=== PATIENT | male | born 1945 | race Caucasian/White ===

== ENCOUNTER 2018-03-30 09:16 | Inpatient (IN) | payer MEDICARE ==
[~2018-03-30] VITALS: Ht 177.8 cm; Wt 105.7 kg
--- NOTE | ~2018-03-30 | CN ---
PATIENT NAME:CAROL LEY MEDICAL RECORD: [id number] : 47 LOCATION:D. D.2126 ADMIT DATE: 03/30/18 ACCOUNT: [id number] CONSULTING PHYSICIAN: SHARMIN ALAS MD REFERRING PHYSICIAN: ANTOINETTE CASTANON MD DATE OF CONSULTATION: 03/30/2018 CARDIOLOGY CONSULT DIAGNOSES: 1. Non-Q-wave myocardial infarction. 2. Coronary artery disease. 3. Previous coronary bypass graft surgery. 4. ETOH abuse. 5. Acute renal failure. HISTORY OF PRESENT ILLNESS: Mr. Ley presents with ETOH delirium from ETOH abuse and was found to have a troponin that is positive. He does have a past cardiac history with coronary bypass graft surgery approximately 6 years ago. His EKG is abnormal with T-wave inversion through the anterior leads. PHYSICAL EXAMINATION: GENERAL APPEARANCE: Well-nourished, well-developed, appears stated age. Level of distress, comfortable. PSYCHIATRIC: Mental status, alert, normal affect. Orientation, oriented to time, place and person. EYES: Lids and conjunctiva, noninjected. No discharge, no pallor. ENT: Lips, teeth, gums, normal dentition. Oropharynx, no cyanosis, no pallor. NECK: Carotid arteries, bilateral normal upstroke, no bruits, no thrills. JUGULAR VEINS: No jugular venous pressure or distention. CERVICAL LYMPH NODES: Nontender, nonenlarged. THYROID: Not enlarged. Nontender. No nodules. LUNGS: Respiratory effort, unlabored. CHEST: Normal curvature. No thoracic deformity. No chest wall tenderness. Percussion, resonant. Auscultation, clear. No wheezes, no rales, no rhonchi. CARDIOVASCULAR: Precordial exam, nondisplaced. No heaves or pericardial thrills. Rate and rhythm, regular. Heart sounds, normal S1, normal S2. No S3, no gallop, no rub. Systolic murmur, not heard. Diastolic murmur, not heard. EXTREMITIES: No cyanosis, no edema. Peripheral pulses, full and equal in all extremities, except as noted. No bruits appreciated. ABDOMEN: Soft, nondistended. Normal aorta. No bruit. Nontender. No masses. Liver, nontender, no hepatomegaly. Spleen, nontender, no splenomegaly. MUSCULOSKELETAL: No joint tenderness. No joint swelling. No erythema. NEUROLOGICAL: Normal gait, normal strength, normal tone. SKIN: Warm and dry. OVERALL IMPRESSION: Non-Q-wave myocardial infarction with abnormal ECG. Most likely he does have recurrent hemodynamically significant coronary artery disease. He, however, has acute renal failure with a BUN of 47, creatinine of 5.1. We will treat him medically at this point. His troponin is positive. We will use aspirin, Plavix, and beta-anna as tolerated, but will be with a very low dose on a beta anna secondary to the renal failure. PROGNOSIS: Poor for many other issues other than cardiac. We will get an echocardiogram to define his ejection fraction. CONSULT REPORT [id number] CAROL LEY TRANSINT:[id number] Voice Confirmation ID: [id number] DOCUMENT ID: [id number] SHARMIN ALAS MD at 1218 CC: [id number] DICTATION DATE: 03/30/18 1255 DIRECTOR FRAUD: 03/30/18 1448 ADM IN [facility] [address] [place] [address]
--- NOTE | ~2018-03-30 | EC ---
PATIENT:CAROL LEY DATE OF SERVICE: 03/30/18 SEX: M MEDICAL RECORD: [id number] DATE OF : 47 LOCATION:D.M2 D.212 AGE OF PATIENT: 72 ADMISSION DATE: 03/30/18 REFERRING PHYSICIAN: INTERPRETING PHYSICIAN: SHARMIN ANTONIO MD ECHOCARDIOGRAM REPORT ECHO CHARGES 4 ECHO COMPLETE Date: 03/30 CLINICAL DIAGNOSIS: CHF ECHOCARDIOGRAPHIC MEASUREMENTS (adult normal given) AC root (d.<3.7cm) 4.2 cm LV Septum d (<1.2 cm> 2.0 cm Valve Excursion 2.2 cm LV Septum (systole) 2.2 cm Left Atria (s.<4.0cm> 4.6 cm LVPW d(<1.2cm) 1.9 cm RV (d.<2.3cm) 4.7 cm LVPW (sytole) 2.3 cm LV diastole(<5.6CM) 4.4 cm MV E-F(>70mm/sec) cm LV systole 1.6 cm LVOT Diameter 2.3 cm MV exc.(>10mm) cm Est.ejection fraction (50-75%) % DOPPLER: LVIT cm/sec A 77.0 cm/sec E 94.0 cm/sec LA cm/sec RVSP 30 mmHg LVOT 153 cm/sec AOP1/2T m/s Asc. Ao 221 cm/sec RVOT 97 cm/sec RA cm/sec PA 175 cm/sec AV Gradient Peak 19.48mmHg AV Mean 1.62 mmHg AV Area 3.3 cm MV Gradient Peak 4.23 mmHg MV Mean 1.62 mmHg MV Area cm COMMENTS: Exhibition Designer: Aliyah GREY Bus Operator: 1 Dr. Antonio TAPE# PACS Pericardial Effusion N DATE OF SERVICE: 03/30/2018 PROCEDURE: Echocardiogram. FINDINGS: 1. Left ventricular chamber size is within normal limits. Left ventricular systolic function is normal. Overall ejection fraction estimated at 60%. 2. Left atrium is enlarged at 4.6 cm. Right atrium and right ventricle chamber sizes are as well mildly dilated. 3. Valvular structures have normal structure and motion. ECHOCARDIOGRAM REPORT [id number] CAROL LEY 4. Doppler interrogation only reveals mild tricuspid regurgitation, no other valvular insufficiency or stenosis and pulmonary systolic pressure is estimated at 30 mmHg. 5. No evidence of pericardial effusion or left ventricular thrombus. TRANSINT:[id number] Voice Confirmation ID: [id number] DOCUMENT ID: [id number] SHARMIN ANTONIO MD at 1218 CC: [id number] DICTATION DATE: 03/30/18 1553 FISH GRADER: 03/30/18 [address] [facility] [address] [place] [address]
[2018-03-30 10:30] LABS: HEMATOCRIT 35.6 % (42.0-54.0); LYMPHOCYTES 17.7 % (15-50); MCH 25.6 pg (26.0-34.0); MCHC 30.9 g/dL (31.0-37.0); MCV 82.8 fL (80.0-100.0); MEAN PLATELET VOLUME 10.4 fL (7.4-10.4); NEUTROPHILS 69.9 % (40-80); RDW 20.2 % (11.5-14.5); WBC 5.7 10x3/uL (4.8-10.8)
[2018-03-30 10:40] LABS: ALBUMIN 2.8 g/dL (3.4-5.0); ALKALINE PHOSPHATASE 244 U/L (46-116); ALT (SGPT) 131 U/L (10-68); BILIRUBIN - TOTAL 1.39 mg/dL (0.2-1.3); CALC OSMOLALITY 278 mosm/kg (275-300); CALCIUM 7.5 mg/dL (8.5-10.1); CARBON DIOXIDE 25.1 mmol/L (21.0-32.0); CHLORIDE - SERUM 97 mmol/L (98-107); CREATININE - SERUM 5.1 mg/dL (0.6-1.3); GLUCOSE 114 mg/dL (74-106); INR 1.23 (0.85-1.17); POTASSIUM - SERUM 3.8 mmol/L (3.5-5.1); SODIUM 133 mmol/L (136-145); UREA NITROGEN 47 mg/dL (7-18); eGFR NON AFRICAN AMERICAN 12 mL/min (90-120)
[2018-03-30 10:59] LABS: PLATELET COUNT 88 10x3/uL (130-400); PLATELET ESTIMATE DECREASED
[2018-03-30 11:01] LABS: LIPASE 124 U/L (73-393); MAGNESIUM - SERUM 1.9 mg/dL (1.8-2.4); PRO BNP 24753 pg/mL (0-125)
[2018-03-30 11:03] LABS: CREATINE KINASE 944 UL (21-232)
[2018-03-30 11:04] LABS: CKMB 35.1 U/L (0.0-3.6); TROPONIN-I 1.457 ng/mL (0.000-0.060)
[2018-03-30 12:19] LABS: UDS - AMPHET NEGATIVE QUAL (NEGATIVE); UDS - BARB NEGATIVE QUAL (NEGATIVE); UDS - BENZO NEGATIVE QUAL (NEGATIVE); UDS - COCAINE NEGATIVE QUAL (NEGATIVE); UDS - OPIATE POSITIVE QUAL (NEGATIVE); UDS - PCP NEGATIVE QUAL (NEGATIVE); UDS - THC NEGATIVE QUAL (NEGATIVE)
[2018-03-30 12:58] LABS: APPEARANCE HAZY (CLEAR); BILIRUBIN NEGATIVE (NEGATIVE); COLOR DK YELLOW (YELLOW); GLUCOSE NEGATIVE (NEGATIVE); KETONE NEGATIVE (NEGATIVE); NITRITE NEGATIVE (NEGATIVE); PROTEIN NEGATIVE (NEGATIVE)
[2018-03-30 12:59] LABS: AMORPHOUS SEDIMENT <1+ /lpf (NONE SEEN); BACTERIA MODERATE /hpf (NONE SEEN); EPITHELIAL CELLS 0-5 /hpf (0-5); GRANULAR CAST RARE /lpf (NONE SEEN); HYALINE CAST 0-5 /lpf (NONE SEEN); MUCUS <1+ /lpf (NONE SEEN); RED CELLS - URINE 0-5 /hpf (0-5); WHITE CELLS - URINE RARE /hpf (0-5)
[2018-03-30] MEDS ORDERED: CARAFATE1 G PO (15:26)
[2018-03-30] MEDS ORDERED: MS CONTIN30 MG PO (15:28)
[2018-03-30] MEDS ORDERED: LIPITOR40 MG PO (15:31)
[2018-03-30] MEDS ORDERED: PROZAC20 MG PO (15:33)
[2018-03-30] MEDS ORDERED: NEURONTIN 300300 MG PO (15:34)
[2018-03-30 15:36] VITALS: BP 127/54
[2018-03-30 15:45] VITALS: BP 127/54; BMI 33.0
[2018-03-30 18:12] LABS: ALBUMIN 2.9 g/dL (3.4-5.0); BILIRUBIN - DIRECT 0.79 mg/dL (0.00-0.30); BILIRUBIN - INDIRECT 0.51 mg/dL (0.00-1.00); BILIRUBIN - TOTAL 1.3 mg/dL (0.2-1.3); PROTEIN - SERUM 6.7 g/dL (6.4-8.2)
[2018-03-30 20:47] VITALS: BP 126/44
[2018-03-31] VITALS: BP 133/55; BP 135/74
[2018-03-31 02:12] LABS: CREATININE - URINE 253.5 mg/dL (30-125); PROTEIN - URINE 76.6 mg/dL (0.0-11.9)
[2018-03-31 05:08] VITALS: BP 124/54
[2018-03-31 07:05] LABS: BASOPHILS 0.6 % (0-2); EOSINOPHILS 2.6 % (0-7); HEMATOCRIT 34.4 % (42.0-54.0); HEMOGLOBIN 10.2 g/dL (13.5-17.5); IMMATURE GRANULOCYTES 0.2 % (0-5); MCH 24.8 pg (26.0-34.0); MCHC 29.7 g/dL (31.0-37.0); MCV 83.7 fL (80.0-100.0); MEAN PLATELET VOLUME 10.6 fL (7.4-10.4); MONOCYTES 15.2 % (2-11); NEUTROPHILS 53.4 % (40-80); PLATELET COUNT 97 10x3/uL (130-400); RBC 4.11 10x6/uL (4.20-6.10); WBC 4.9 10x3/uL (4.8-10.8)
[2018-03-31 07:12] LABS: ANION GAP 14.5 mmol/L (8-16); CALCIUM 7.4 mg/dL (8.5-10.1); CARBON DIOXIDE 26.4 mmol/L (21.0-32.0); CREATININE - SERUM 3.8 mg/dL (0.6-1.3); PHOSPHOROUS 5.7 mg/dL (2.5-4.9); POTASSIUM - SERUM 3.9 mmol/L (3.5-5.1)
[2018-03-31 07:38] LABS: ALBUMIN 2.5 g/dL (3.4-5.0); ALKALINE PHOSPHATASE 234 U/L (46-116); ALT (SGPT) 106 U/L (10-68); BILIRUBIN - DIRECT 0.68 mg/dL (0.00-0.30); BILIRUBIN - INDIRECT 0.52 mg/dL (0.00-1.00); MAGNESIUM - SERUM 2.1 mg/dL (1.8-2.4); PROTEIN - SERUM 6.4 g/dL (6.4-8.2)
[2018-03-31 07:39] LABS: CREATINE KINASE 1348 UL (21-232)
[2018-03-31 08:21] VITALS: BP 167/75
[2018-03-31 10:30] VITALS: BMI 33.0
[2018-03-31 11:37] VITALS: BP 177/60
[2018-03-31 16:18] VITALS: BP 180/70
[2018-03-31 21:22] VITALS: BP 157/70
[2018-04-01] VITALS (7 sets, daily range): BP systolic 113–189; BP diastolic 42–70; Ht 177.8 cm; Wt 105.7 kg
[2018-04-01 06:09] LABS: HEMATOCRIT 28.8 % (42.0-54.0); HEMOGLOBIN 8.8 g/dL (13.5-17.5); MCH 25.1 pg (26.0-34.0); MCHC 30.6 g/dL (31.0-37.0); MCV 82.3 fL (80.0-100.0); MEAN PLATELET VOLUME 10.6 fL (7.4-10.4)
[2018-04-01 06:26] LABS: PLATELET COUNT 77 10x3/uL (130-400); WBC 2.2 10x3/uL (4.8-10.8)
[2018-04-01 06:27] LABS: ANION GAP 10.2 mmol/L (8-16); CALCIUM 7.8 mg/dL (8.5-10.1); CARBON DIOXIDE 31.2 mmol/L (21.0-32.0); POTASSIUM - SERUM 3.4 mmol/L (3.5-5.1)
[2018-04-01 06:28] LABS: CREATININE - SERUM 1.6 mg/dL (0.6-1.3)
[2018-04-01 07:48] LABS: EOSINOPHILS 2 % (0-7); LYMPHOCYTES 28 % (15-50); MONOCYTES 12 % (2-11); NEUTROPHILS 56 % (40-80); PLATELET ESTIMATE DECREASED
[2018-04-01 12:17] LABS: HEPATITIS C ANTIBODY <0.1 (0.0-0.9)
[2018-04-01 20:21] LABS: % SATURATION 6 % (15-55); IRON 20 ug/dl (35-150); TOTAL IRON BIND CAPACITY 302 ug/dl (260-445); UNSAT IRON BIND CAPACITY 282 ug/dl (150-375)
[2018-04-01 20:25] LABS: FERRITIN 46 ng/mL (3-244); LDH 257 U/L (85-227)
[2018-04-02 01:28] VITALS: BP 158/74
[2018-04-02 05:12] LABS: BASOPHILS 0.4 % (0-2); EOSINOPHILS 1.6 % (0-7); HEMATOCRIT 29.1 % (42.0-54.0); HEMOGLOBIN 8.6 g/dL (13.5-17.5); LYMPHOCYTES 26.3 % (15-50); MCH 24.7 pg (26.0-34.0); MCHC 29.6 g/dL (31.0-37.0); MCV 83.6 fL (80.0-100.0); MEAN PLATELET VOLUME 9.9 fL (7.4-10.4); MONOCYTES 16.1 % (2-11); NEUTROPHILS 55.6 % (40-80); PLATELET COUNT 69 10x3/uL (130-400); RBC 3.48 10x6/uL (4.20-6.10); RDW 19.9 % (11.5-14.5); WBC 2.6 10x3/uL (4.8-10.8)
[2018-04-02 05:21] LABS: CALCIUM 8.3 mg/dL (8.5-10.1); CARBON DIOXIDE 35.2 mmol/L (21.0-32.0); CHLORIDE - SERUM 112 mmol/L (98-107); GLUCOSE 114 mg/dL (74-106); PHOSPHOROUS 2.5 mg/dL (2.5-4.9); POTASSIUM - SERUM 3.6 mmol/L (3.5-5.1); SODIUM 150 mmol/L (136-145)
[2018-04-02 05:23] LABS: CALC OSMOLALITY 300 mosm/kg (275-300); CREATININE - SERUM 0.8 mg/dL (0.6-1.3); UREA NITROGEN 19 mg/dL (7-18); eGFR NON AFRICAN AMERICAN > 90 mL/min (90-120)
[2018-04-02 06:02] VITALS: BP 141/63
[2018-04-02 08:18] VITALS: BP 131/54
[2018-04-02 11:02] LABS: PATH REVIEW PERIPHERAL SMEAR REVIEWED
[2018-04-02 11:09] VITALS: BP 162/59
[2018-04-02 16:03] VITALS: BP 142/59
[2018-04-02 20:00] VITALS: BP 164/68
[2018-04-03] VITALS: BP 167/79
[2018-04-03 04:00] VITALS: BP 173/83
[2018-04-03 06:10] LABS: INR 1.29 (0.85-1.17); PROTIME 15.7 SECONDS (11.6-15.0)
[2018-04-03 06:14] LABS: FOLATE (FOLIC ACID) - SERUM 15.4 ng/mL (>3.0)
[2018-04-03 06:20] LABS: ALBUMIN 2.5 g/dL (3.4-5.0); ALKALINE PHOSPHATASE 195 U/L (46-116); ALT (SGPT) 66 U/L (10-68); BILIRUBIN - DIRECT 0.69 mg/dL (0.00-0.30); BILIRUBIN - INDIRECT 0.51 mg/dL (0.00-1.00); CALC OSMOLALITY 287 mosm/kg (275-300); CALCIUM 8.3 mg/dL (8.5-10.1); CARBON DIOXIDE 38.1 mmol/L (21.0-32.0); CHLORIDE - SERUM 106 mmol/L (98-107); CHOL - HDL RATIO 3.1 ratio (2.3-4.9); CHOLESTEROL, TOTAL 98 mg/dL (0-200); CREATININE - SERUM 0.8 mg/dL (0.6-1.3); GLUCOSE 102 mg/dL (74-106); HDL CHOLESTEROL 32 mg/dL (32-96); LDL CHOLESTEROL 54 mg/dL (0-100); LDL-HDL RATIO 1.7 ratio (1.5-3.5); PHOSPHOROUS 2.7 mg/dL (2.5-4.9); POTASSIUM - SERUM 3.4 mmol/L (3.5-5.1); PROTEIN - SERUM 6.3 g/dL (6.4-8.2); SODIUM 145 mmol/L (136-145); TRIGLYCERIDE 62 mg/dL (30-200); eGFR NON AFRICAN AMERICAN > 90 mL/min (90-120)
[2018-04-03 06:21] LABS: UREA NITROGEN 10 mg/dL (7-18)
[2018-04-03 07:17] LABS: BASOPHILS 0.7 % (0-2); HEMATOCRIT 31.5 % (42.0-54.0); HEMOGLOBIN 9.6 g/dL (13.5-17.5); LYMPHOCYTES 34.2 % (15-50); MCH 25.5 pg (26.0-34.0); MCHC 30.5 g/dL (31.0-37.0); MCV 83.6 fL (80.0-100.0); MEAN PLATELET VOLUME 10.4 fL (7.4-10.4); MONOCYTES 15.8 % (2-11); NEUTROPHILS 46.3 % (40-80); PLATELET COUNT 71 10x3/uL (130-400); RBC 3.77 10x6/uL (4.20-6.10); RDW 20.8 % (11.5-14.5)
[2018-04-03 08:35] VITALS: BP 172/84
[2018-04-03 12:00] VITALS: BP 174/80
[2018-04-03 17:02] VITALS: BP 178/77
[2018-04-03 19:40] VITALS: BP 171/73
[2018-04-04] VITALS: BP 167/77
[2018-04-04 04:00] VITALS: BP 147/76
[2018-04-04 06:16] LABS: BASOPHILS 0.4 % (0-2); EOSINOPHILS 2.5 % (0-7); HEMATOCRIT 29.6 % (42.0-54.0); IMMATURE GRANULOCYTES 0.7 % (0-5); LYMPHOCYTES 28.4 % (15-50); MCH 25.5 pg (26.0-34.0); MCHC 30.4 g/dL (31.0-37.0); MCV 83.9 fL (80.0-100.0); MEAN PLATELET VOLUME 10.1 fL (7.4-10.4); MONOCYTES 16.9 % (2-11); NEUTROPHILS 51.1 % (40-80); RBC 3.53 10x6/uL (4.20-6.10); RDW 21.1 % (11.5-14.5); WBC 2.8 10x3/uL (4.8-10.8)
[2018-04-04 06:19] LABS: PLATELET COUNT 56 10x3/uL (130-400)
[2018-04-04 06:44] LABS: CALCIUM 8.2 mg/dL (8.5-10.1); CHLORIDE - SERUM 104 mmol/L (98-107); CREATININE - SERUM 0.8 mg/dL (0.6-1.3); GLUCOSE 125 mg/dL (74-106); PHOSPHOROUS 2.1 mg/dL (2.5-4.9); SODIUM 140 mmol/L (136-145); eGFR NON AFRICAN AMERICAN > 90 mL/min (90-120)
[2018-04-04 06:45] LABS: CALC OSMOLALITY 277 mosm/kg (275-300); POTASSIUM - SERUM 2.8 mmol/L (3.5-5.1); UREA NITROGEN 6 mg/dL (7-18)
[2018-04-04 09:09] VITALS: BP 165/81
[2018-04-04 12:00] VITALS: BP 154/69
[2018-04-04 17:23] VITALS: BP 167/79
[2018-04-04 20:00] VITALS: BP 154/73
[2018-04-05 04:00] VITALS: BP 152/62
[2018-04-05 07:18] LABS: BASOPHILS 0.6 % (0-2); EOSINOPHILS 2.6 % (0-7); HEMATOCRIT 28.4 % (42.0-54.0); HEMOGLOBIN 8.6 g/dL (13.5-17.5); IMMATURE GRANULOCYTES 0.3 % (0-5); LYMPHOCYTES 19.9 % (15-50); MCH 25.4 pg (26.0-34.0); MCHC 30.3 g/dL (31.0-37.0); MEAN PLATELET VOLUME 10.4 fL (7.4-10.4); MONOCYTES 21.9 % (2-11); NEUTROPHILS 54.7 % (40-80); PLATELET COUNT 60 10x3/uL (130-400); RBC 3.38 10x6/uL (4.20-6.10); RDW 21.3 % (11.5-14.5); WBC 3.1 10x3/uL (4.8-10.8)
[2018-04-05 07:30] LABS: ALBUMIN 2.3 g/dL (3.4-5.0); ALKALINE PHOSPHATASE 174 U/L (46-116); ALT (SGPT) 44 U/L (10-68); BILIRUBIN - TOTAL 1.22 mg/dL (0.2-1.3); CALC OSMOLALITY 281 mosm/kg (275-300); CALCIUM 8.2 mg/dL (8.5-10.1); CHLORIDE - SERUM 105 mmol/L (98-107); CREATININE - SERUM 0.9 mg/dL (0.6-1.3); GLUCOSE 117 mg/dL (74-106); POTASSIUM - SERUM 3.3 mmol/L (3.5-5.1); SODIUM 142 mmol/L (136-145); UREA NITROGEN 6 mg/dL (7-18); eGFR NON AFRICAN AMERICAN 88 mL/min (90-120)
[2018-04-05 07:31] LABS: PHOSPHOROUS 2.7 mg/dL (2.5-4.9)
[2018-04-05 08:00] VITALS: BP 127/64
[2018-04-05 11:02] VITALS: BP 132/57
[2018-04-05] MEDS ORDERED: ASPIRIN81 MG PO (13:44)
[2018-04-05] MEDS ORDERED: FLOMAX0.4 MG PO (13:44)
[2018-04-05] MEDS ORDERED: XIFAXAN550 MG PO (13:44)
[2018-04-05] MEDS ORDERED: FERROUS SULFAT325 MG PO (13:44)
[2018-04-05] MEDS ORDERED: PLAVIX75 MG PO (13:44)
== END 2018-04-05 15:38 | disposition home or self-care (01) | DRG 441 ==
LOC: D.ER 09:16 → D.EDHOLD 12:02 → D.M2 12:02
PROVIDERS: Family Medicine; Internal Medicine Gastroenterology; Internal Medicine Nephrology; Legal Medicine
DX: K72.90 Hepatic failure, unspecified without coma (principal); I21.4 Non-ST elevation (NSTEMI) myocardial infarction; N17.9 Acute kidney failure, unspecified; F10.239 Alcohol dependence with withdrawal, unspecified; I25.10 Atherosclerotic heart disease of native coronary artery without angina pectoris; K74.60 Unspecified cirrhosis of liver; E66.01 Morbid (severe) obesity due to excess calories; Z68.33 Body mass index [BMI] 33.0-33.9, adult; D69.6 Thrombocytopenia, unspecified; N32.0 Bladder-neck obstruction; R31.9 Hematuria, unspecified; T83.028A Displacement of other urinary catheter, initial encounter; Y84.6 Urinary catheterization as the cause of abnormal reaction of the patient, or of later complication, without mention of misadventure at the time of the procedure; Z95.1 Presence of aortocoronary bypass graft

== ENCOUNTER 2018-11-25 17:59 | Inpatient (IN) | payer MEDICARE ==
[2018-11-25] VITALS (9 sets, daily range): BP systolic 56–152; BP diastolic 27–79
[~2018-11-25] VITALS: Ht 177.8 cm; Wt 108.6 kg
[~2018-11-25 17:59] MED LIST: ASPIRIN81 MG PO; CARAFATE1 G PO; FERROUS SULFAT325 MG PO; FLOMAX0.4 MG PO; LIPITOR40 MG PO; MS CONTIN30 MG PO; NEURONTIN 300300 MG PO; PLAVIX75 MG PO; PROZAC20 MG PO; XIFAXAN550 MG PO
[2018-11-25 19:43] LABS: BASOPHILS 0.4 % (0-2); EOSINOPHILS 0.5 % (0-7); HEMATOCRIT 36.7 % (42.0-54.0); HEMOGLOBIN 11.7 g/dL (13.5-17.5); IMMATURE GRANULOCYTES 0.3 % (0-5); MCH 29.2 pg (26.0-34.0); MCHC 31.9 g/dL (31.0-37.0); MCV 91.5 fL (80.0-100.0); MEAN PLATELET VOLUME 10.9 fL (7.4-10.4); MONOCYTES 14.5 % (2-11); NEUTROPHILS 67.3 % (40-80); RBC 4.01 10x6/uL (4.20-6.10); RDW 15.4 % (11.5-14.5); WBC 7.5 10x3/uL (4.8-10.8)
[2018-11-25 19:46] LABS: PLATELET COUNT 111 10x3/uL (130-400)
[2018-11-25 19:54] LABS: ALBUMIN 3.2 g/dL (3.4-5.0); ANION GAP 19.7 mmol/L (8-16); CALCIUM 7.6 mg/dL (8.5-10.1); CARBON DIOXIDE 24.2 mmol/L (21.0-32.0); CREATININE - SERUM 5.5 mg/dL (0.6-1.3); PROTEIN - SERUM 6.9 g/dL (6.4-8.2)
[2018-11-25 19:56] LABS: POTASSIUM - SERUM 6.9 mmol/L (3.5-5.1)
[2018-11-25 20:16] LABS: BILIRUBIN - TOTAL 0.86 mg/dL (0.2-1.3)
--- NOTE | 2018-11-25 20:35 | NUR ---
PT ANXIOUS IN BED AND RESTLESS. PT SPOUSE STATES THAT IS NORMAL FOR PT DUE TO A SPINAL CORD INJURY AND PAIN. PT IS LOUD BUT ALERT AND ABLE TO ANSWER AND OBEY COMMANDS. PT DENIES NEEDS, CALL LIGHT WITHIN REACH, WILL CONTINUE TO MONITOR.
--- NOTE | 2018-11-25 21:02 | NUR ---
PT RESTING IN BED WHILE GOING TO CT. RISE AND FALL OF CHEST NOTED.
--- NOTE | 2018-11-25 22:09 | NUR ---
16 FR. INDWELLING HARO CATHETER INSERTED STERILE FIELD MAINTAINED WITH 650 ML URINE OUTPUT AT INSERTION.
[2018-11-25 23:10] LABS: ALBUMIN 3.2 g/dL (3.4-5.0); ANION GAP 19.3 mmol/L (8-16); BILIRUBIN - TOTAL 0.92 mg/dL (0.2-1.3); CALCIUM 7.4 mg/dL (8.5-10.1); CARBON DIOXIDE 22.6 mmol/L (21.0-32.0); CREATININE - SERUM 5.6 mg/dL (0.6-1.3); MAGNESIUM - SERUM 1.9 mg/dL (1.8-2.4); PROTEIN - SERUM 7.1 g/dL (6.4-8.2)
[2018-11-25 23:24] LABS: PHOSPHOROUS 10.3 mg/dL (2.5-4.9); POTASSIUM - SERUM 6.9 mmol/L (3.5-5.1)
[2018-11-25 23:29] LABS: APPEARANCE HAZY (CLEAR); BILIRUBIN NEGATIVE (NEGATIVE); COLOR YELLOW (YELLOW); EPITHELIAL CELLS RARE /hpf (0-5); GLUCOSE NEGATIVE (NEGATIVE); KETONE NEGATIVE (NEGATIVE); NITRITE NEGATIVE (NEGATIVE); PROTEIN 1+ mg/dL (NEGATIVE); RED CELLS - URINE 0-5 /hpf (0-5); UROBILINOGEN NORMAL (NORMAL); WHITE CELLS - URINE 0-5 /hpf (0-5)
[2018-11-25 23:30] LABS: BACTERIA NONE SEEN /hpf (NONE SEEN)
--- NOTE | 2018-11-25 23:54 | NUR ---
REPORT CALLED TO BEENA MILES TO ROOM 2304. RT CALLED AT THIS TIME TO ASSIST WITH TRANSPORT.
[2018-11-26] VITALS (52 sets, daily range): BP systolic 87–197; BP diastolic 52–92; BMI 35.1; BMI 34.7
--- NOTE | 2018-11-26 00:40 | NUR ---
PATIENT RECEIVED TO ICU ROOM 2304 VIA STRETCHER ACCOMPANIED BY ED/RESPIRATORY STAFF. ALL MONITORING EQUIPMENT PLACED PER ICU PROTOCOL. LEVOPHED/FENTANYL INFUSING, SEE IV FLOWSHEET
--- NOTE | 2018-11-26 01:02 | NUR ---
DR. CASTANON CALLED DIRECTLY, NOTIFIED OF THIS PATIENT'S ARRIVAL TO ICU, UPDATE GIVEN, NEW ORDERS RECEIVED
--- NOTE | 2018-11-26 01:03 | NUR ---
DR. CASTANON NOTIFIED OF THIS PATIENT'S ARRIVAL, NEW ORDERS RECEIVED
--- NOTE | 2018-11-26 03:00 | NUR ---
RE-ASSESSMENT COMPLETE, PATIENT REPOSITIONED, ORAL CARE COMPLETE, CONTINUOUSLY TITRATING LEVOPHED DOWN, ACCORDING TO B/P
[2018-11-26 04:03] LABS: BASOPHILS 0.2 % (0-2); EOSINOPHILS 0.2 % (0-7); HEMATOCRIT 36.5 % (42.0-54.0); HEMOGLOBIN 11.9 g/dL (13.5-17.5); IMMATURE GRANULOCYTES 0.2 % (0-5); LYMPHOCYTES 7.1 % (15-50); MCH 29.2 pg (26.0-34.0); MCHC 32.6 g/dL (31.0-37.0); MONOCYTES 23.1 % (2-11); NEUTROPHILS 69.2 % (40-80); RBC 4.08 10x6/uL (4.20-6.10); RDW 15.4 % (11.5-14.5)
[2018-11-26 04:13] LABS: MCV 89.5 fL (80.0-100.0); PLATELET COUNT 75 10x3/uL (130-400); WBC 5.4 10x3/uL (4.8-10.8)
[2018-11-26 04:19] LABS: ANION GAP 19.4 mmol/L (8-16); CALCIUM 8.7 mg/dL (8.5-10.1); CARBON DIOXIDE 22.3 mmol/L (21.0-32.0)
[2018-11-26 04:23] LABS: PHOSPHOROUS 4.4 mg/dL (2.5-4.9); POTASSIUM - SERUM 4.7 mmol/L (3.5-5.1)
--- NOTE | 2018-11-26 05:00 | NUR ---
PATIENT REPOSITIONED, ORAL CARE PROVIDED, CONTINUE POC
[2018-11-26 05:07] LABS: PLATELET ESTIMATE DECREASED
--- NOTE | 2018-11-26 05:20 | NUR ---
LEVOPHED GTT TURNED OFF
--- NOTE | 2018-11-26 08:06 | NUR ---
pt turned and mouth care complete, vss, no purposeful movement noted.
--- NOTE | 2018-11-26 08:21 | NUR ---
0130 PATIENT REPOSITIONED, HARO CARE PROVIDED, 1200 CC OF URINE EMPTIED FROM HARO UPON THIS PATIENT'S ARRIVAL AT 0040
--- NOTE | 2018-11-26 09:12 | NUR ---
PT BITING ETT. FENTANYL GTT TITRATED UP FOR SEDATION.
--- NOTE | 2018-11-26 10:57 | MORECARE ---
CASE MANAGEMENT DISCHARGE SUMMARY PATIENT: CAROL LEY UNIT: [id number] ADM DATE: 11/25/18 AGE: 73 : 47 SEX: M ROOM/BED: D.2304 AUTHOR: NELLIE RASHID PHYSICIAN: REFERRING PHYSICIAN: ANTOINETTE CASTANON MD DATE OF SERVICE: 11/26/18 Discharge Plan Patient Name: CAROL LEY [facility] [facility] 1945 Planned Disposition: Anticipated Discharge Date: Discharge Date: Expected LOS: Initial Reviewer: [email or web address] Initial Review Date: 11/26/2018 Generated: 11/26/18 11:56 am Comments DCP- Discharge Planning Updated by [email or web address]: Ania Hollis on 11/26/18 9:[address] CM attempted to do intake assessment for discharge planning. Patient is currently on ventilator and sedated. No family available at this time. CM will continue to follow and assist as needed with discharge planning / needs Patient Name: CAROL LEY Page [phone] at 1057 All edits/amendments must be made on the electronic document DICTATION DATE: 11/26/18 1056 FINANCIAL PROJECT MANAGER: MARILUZ 11/26/18 1056 RPT#: [id number] DC DATE: STATUS: ADM IN [facility] [address] [place] [address] END OF REPORT
[2018-11-26 11:11] LABS: CKMB 17.6 U/L (0.0-3.6); CREATINE KINASE 664 UL (21-232); MAGNESIUM - SERUM 1.7 mg/dL (1.8-2.4)
--- NOTE | 2018-11-26 11:17 | NUR ---
DR CASTANON HERE. PT POSTURING AT THIS TIME. REC;D ORDERS FOR DILANTIN. TROPININ REPORTED TO DR CASTANON.
[2018-11-26 11:19] LABS: % SATURATION 18 % (15-55); IRON 65 ug/dl (35-150); TOTAL IRON BIND CAPACITY 360 ug/dl (260-445); UNSAT IRON BIND CAPACITY 295 ug/dl (150-375)
--- NOTE | 2018-11-26 12:44 | NUR ---
DR GAO AND DR CASTANON SPOKE TO PTS AT .
--- NOTE | 2018-11-26 13:30 | NUR ---
YESSENIA WITH CARDIOLOGY HERE ON ROUNDS. SPEAKING TO AT BS. PT APPEARS TO BE ACTIVLY SEIZING. REPORTED TO DR CASTANON.
--- NOTE | 2018-11-26 14:59 | NUR ---
PT TAKEN TO CT FOR CT HEAD AND CT ABD, VENT MGNT PER RT. BACK TO ROOM WITH OUT PROBLEMS. VSS, ALL MONITORING EQUIPMENT ATTACHED AND ALARMS SET.
[2018-11-26 16:39] LABS: CREATINE KINASE 696 UL (21-232)
[2018-11-26 16:44] LABS: TROPONIN-I 4.083 ng/mL (0.000-0.060)
--- NOTE | 2018-11-26 19:30 | NUR ---
ASSESSMENT COMPLETE, PER NURSING FLOWSHEET, ORAL CARE PROVIDED, PATIENT REPOSITIONED, CONTINUE POC
--- NOTE | 2018-11-26 21:00 | NUR ---
PATIENT REPOSITIONED, OGT FLUSHED, THICK "CHUNKY" MATTER CLOGGING OGT IF NOT FLUSHED
--- NOTE | 2018-11-26 23:00 | NUR ---
REASSESSMENT COMPLETE, ORAL CARE PROVIDED, PATIENT REPOSITIONED, OGT FLUSHED
[2018-11-26 23:42] LABS: CKMB 4.2 U/L (0.0-3.6); CREATINE KINASE 372 UL (21-232)
[2018-11-26 23:43] LABS: TROPONIN-I 2.163 ng/mL (0.000-0.060)
[2018-11-27] VITALS (21 sets, daily range): BP systolic 99–191; BP diastolic 57–101; Ht 177.8 cm; Wt 108.6 kg
--- NOTE | 2018-11-27 01:00 | NUR ---
PATIENT REPOSITIONED, HARO CARE PROVIDED, VSS
[2018-11-27 02:17] LABS: UDS - AMPHET NEGATIVE QUAL (NEGATIVE); UDS - BARB NEGATIVE QUAL (NEGATIVE); UDS - BENZO NEGATIVE QUAL (NEGATIVE); UDS - COCAINE NEGATIVE QUAL (NEGATIVE); UDS - OPIATE POSITIVE QUAL (NEGATIVE); UDS - PCP NEGATIVE QUAL (NEGATIVE); UDS - THC NEGATIVE QUAL (NEGATIVE)
--- NOTE | 2018-11-27 03:00 | NUR ---
REASSESSMENT COMPLETE, PATIENT REPOSTIONED, ORAL CARE PROVIDED, NO OTHER NEEDS NOTED AT THIS TIME
[2018-11-27 04:02] LABS: BASOPHILS 0.2 % (0-2); EOSINOPHILS 1.4 % (0-7); HEMOGLOBIN 10.9 g/dL (13.5-17.5); IMMATURE GRANULOCYTES 0.2 % (0-5); LYMPHOCYTES 13.7 % (15-50); MCH 29.3 pg (26.0-34.0); MCV 88.7 fL (80.0-100.0); MEAN PLATELET VOLUME 11.5 fL (7.4-10.4); MONOCYTES 14.7 % (2-11); NEUTROPHILS 69.8 % (40-80); PLATELET COUNT 80 10x3/uL (130-400); RBC 3.72 10x6/uL (4.20-6.10); WBC 5.2 10x3/uL (4.8-10.8)
[2018-11-27 04:38] LABS: ALBUMIN 2.4 g/dL (3.4-5.0); BILIRUBIN - TOTAL 0.47 mg/dL (0.2-1.3); CALCIUM 7.1 mg/dL (8.5-10.1); CARBON DIOXIDE 26.2 mmol/L (21.0-32.0); MAGNESIUM - SERUM 1.6 mg/dL (1.8-2.4); PROTEIN - SERUM 5.7 g/dL (6.4-8.2)
[2018-11-27 04:40] LABS: ANION GAP 12.7 mmol/L (8-16); CREATININE - SERUM 1.6 mg/dL (0.6-1.3); PHOSPHOROUS 3.1 mg/dL (2.5-4.9); POTASSIUM - SERUM 3.9 mmol/L (3.5-5.1); TROPONIN-I 1.667 ng/mL (0.000-0.060)
--- NOTE | 2018-11-27 05:00 | NUR ---
PATIENT REPOSITIONED, OGT FLUSHED, CONTINUES TO CLOG WITH THICK "CHUNKY" MATTER, WILL CONTINUE TO MONITOR
--- NOTE | 2018-11-27 07:50 | NUR ---
PT TURNED AND MOUTH CARE COMPLETE. DAUGHTER AT BS. ALL MONITORING EQUIPMENT ATTACHED AND ALARMS ON. VSS. NO PRESSORS INFUSING. TEMP 100.4.
[2018-11-27 12:11] LABS: FOLATE (FOLIC ACID) - SERUM 8.2 ng/mL (>3.0)
--- NOTE | 2018-11-27 14:11 | NUR ---
DR GAO AND DR CASTANON SPOKE TO FAMILY AT TODAY.
--- NOTE | 2018-11-27 15:51 | NUR ---
PT TAKEN TO MRI. PORTABLE VENT BY RT. PT MOVING LEGS WHILE ON THE TABLE. RYTHM CHANGES ON THE CM NOTED. BP 204/104. PT DIAPHORETIC. SCAN STOPPED AND PT RETURNED TO THE ICU.
--- NOTE | 2018-11-27 18:00 | NUR ---
ATTEMPTED TO DO MRI BRAIN ON PT. ONCE WE STARTED THE SCAN, PT'S HEART RATE AND RYTHYM CHANGED AND BP ELEVATED. EXAM STOPPED DUE TO PT STATUS CHANGE. TOO UNSTABLE TO CONTINUE WITH TEST.
--- NOTE | 2018-11-27 19:30 | NUR ---
ASSESSMENT COMPLETE, PER NURSING FLOWSHEET, PATIENT REPOSITIONED, INLINE SUCTIONED AND ORAL CARE PROVIDED, CONTINUE POC
--- NOTE | 2018-11-27 21:00 | NUR ---
PATIENT REPOSITIONED, HEELS BRIDGED, BUE ELEVATED, FENTANYL INCREASED SECONDARY TO ELEVATED B/P
--- NOTE | 2018-11-27 23:00 | NUR ---
RE-ASSESSMENT COMPLETE, PATIENT REPOSITIONED, ORAL CARE PROVIDED, CONTINUING TO MONITOR B/P
[2018-11-28] VITALS (29 sets, daily range): BP systolic 139–204; BP diastolic 54–108
--- NOTE | 2018-11-28 00:45 | NUR ---
DR. CASTANON CALLED, INFORMED OF ELEVATED B/P, NEW ORDERS RECEIVED
--- NOTE | 2018-11-28 01:00 | NUR ---
CARDIZIEM GTT INITIATED, HARO CARE PROVIDED, PATIENT REPOSITIONED, WILL CONTINUE TO MONITOR B/P AND TITRATE GTT ACCORDINGLY
--- NOTE | 2018-11-28 03:00 | NUR ---
RE-ASSESSMENT COMPLETE PER NURSING FLOWSHEET, PATIENT REPOSITIONED, ORAL CARE PROVIDED. CARDIZIEM GTT AT MAXIMUM INFUSION RATE, WILL CONTINUE TO MONITOR THIS PATIENT'S B/P
[2018-11-28 03:19] LABS: BASOPHILS 0.2 % (0-2); EOSINOPHILS 0.2 % (0-7); HEMATOCRIT 38.9 % (42.0-54.0); HEMOGLOBIN 12.4 g/dL (13.5-17.5); IMMATURE GRANULOCYTES 0.2 % (0-5); LYMPHOCYTES 10.4 % (15-50); MCH 29.2 pg (26.0-34.0); MCHC 31.9 g/dL (31.0-37.0); MEAN PLATELET VOLUME 12.1 fL (7.4-10.4); MONOCYTES 14.5 % (2-11); NEUTROPHILS 74.5 % (40-80); PLATELET COUNT 85 10x3/uL (130-400); RBC 4.25 10x6/uL (4.20-6.10); RDW 16.3 % (11.5-14.5); WBC 6.4 10x3/uL (4.8-10.8)
[2018-11-28 03:27] LABS: MCV 91.5 fL (80.0-100.0)
[2018-11-28 03:39] LABS: ALBUMIN 2.6 g/dL (3.4-5.0); ALKALINE PHOSPHATASE 119 U/L (46-116); ALT (SGPT) 26 U/L (10-68); BILIRUBIN - TOTAL 0.72 mg/dL (0.2-1.3); CALC OSMOLALITY 290 mosm/kg (275-300); CALCIUM 8.2 mg/dL (8.5-10.1); CARBON DIOXIDE 23.3 mmol/L (21.0-32.0); CHLORIDE - SERUM 107 mmol/L (98-107); GLUCOSE 143 mg/dL (74-106); MAGNESIUM - SERUM 1.6 mg/dL (1.8-2.4); PHOSPHOROUS 2.7 mg/dL (2.5-4.9); POTASSIUM - SERUM 3.9 mmol/L (3.5-5.1); PROTEIN - SERUM 6.6 g/dL (6.4-8.2); SODIUM 141 mmol/L (136-145); UREA NITROGEN 36 mg/dL (7-18); eGFR NON AFRICAN AMERICAN 78 mL/min (90-120)
--- NOTE | 2018-11-28 04:10 | NUR ---
DR. CASTANON CALLED REGARDING THIS PATIENT'S CONTINUED ELEVATED B/P'S, CALL TO VOICEMAIL, MESSAGE LEFT
--- NOTE | 2018-11-28 04:25 | NUR ---
DR. CASTANON CALLLED, CALL TO VOICEMAIL, MESSAGE LEFT
--- NOTE | 2018-11-28 04:40 | NUR ---
DR. CASTANON CALLED, CALL TO VOICEMAIL, MESSAGE LEFT
--- NOTE | 2018-11-28 04:55 | NUR ---
DR. CASTANON CALLED, CALL TO VOICEMAIL, MESSAGE LEFT
--- NOTE | 2018-11-28 04:57 | NUR ---
[facility] ON-CALL SERVICE CONTACTED TO RESOURCE IF THERE WERE ANY ALTERNATE WAYS TO REACH DR. CASTANON. NETWORK PROJECT MANAGER SERVICE STATED TO CALL CELL PHONE DIRECT, WHICH HAS PREVIOUSLY HOW ATTEMPTS TO CONTACT HAVE BEEN MADE
--- NOTE | 2018-11-28 05:00 | NUR ---
PATIENT REPOSITIONED, ORAL CARE PROVIDED, CONTINUE POC
--- NOTE | 2018-11-28 05:20 | NUR ---
DR. CASTANON CALLED, MESSAGE LEFT
--- NOTE | 2018-11-28 05:55 | NUR ---
DR. CASTANON CALLED, UPDATED TO THIS PATIENT'S CONTINUED HYPERTENSION, NEW ORDERS RECEIVED
--- NOTE | 2018-11-28 07:00 | NUR ---
BLOOD PRESSURE IN 190 SYS. HYDRALAZINE GIVEN. ETT SECURE TO VENT BILATERAL LUNG EQUAL AND CONGESTED SUCTIONED MOD AMOUNT COYLE BROWN SUPUTM. MINIMAL SUCTION FROM MOUTH. EYES OPEN AND LOOKING BACK INTO LIDS. NO MOVEMENT NOTED IN EXTREMITIES. IV LEFT HAND WITHOUT REDNESS OR SWELLING. INFUSING WITH NS AT 125 ML HOUR AND CARDIZEM AT [address] HARO PATENT DRAINING CLEAR WALDEMAR URINE. HANDS AND FEET SWOLLEN. EXCORATION NOTED ON LOWER LIP
--- NOTE | 2018-11-28 08:30 | NUR ---
FAMILY HERE UPDATE GIVEN
--- NOTE | 2018-11-28 10:30 | NUR ---
SUCTION ETT TUBE WITH MOD AMOUNT LIGHT BROWN THICK SPUTUM. EYES OPEN ALL THE TIME. GOOD COUGH REFLEX. DOES MOVE EXTREMITITES TO PAINFUL STIMULI ARMS TURNING IN AND KNEES TURN INWARD TO PAIN FUL STIMULI. DOES NOT OBEY COMMANDS
--- NOTE | 2018-11-28 12:30 | NUR ---
FAMILY HERE UPDATE GIVEN PER DR. CASTANON. NO CHANGE
--- NOTE | 2018-11-28 14:30 | NUR ---
NO CHANGES EMOTIONAL SUPPORT GIVEN TO FAMILY
--- NOTE | 2018-11-28 16:30 | NUR ---
OPENS EYES TO STIMULATION, TENDS TO LEAVE EYES OPEN FOR LENGTH OF TIME. EYES ROLL BACK INTO EYE LIDS. RANDOMLY MOVES EXTREMITIES TO PAINFUL STIMULATION. SUCTION FREQ PER ETT. MONITOR SR. NO DISTRESS.
--- NOTE | 2018-11-28 18:12 | NUR ---
LUNGS CLEARER STILL SOME CONGESTION. NO DISTRESS. HEAD OF BED ELEVATED 30 DEGREES
--- NOTE | 2018-11-28 18:34 | NUR ---
PULMOCARE TUBE FEEDING STARTED AT 20 ML HOUR
--- NOTE | 2018-11-28 19:30 | NUR ---
SHIFT ASSESSMENT COMPLETE PER NURSING FLOWSHEET, PATIENT REPOSITIONED, ORAL CARE PROVIDED
--- NOTE | 2018-11-28 21:00 | NUR ---
PATIENT REPOSITIONED, ORAL CARE PROVIDED, NO OTHER NEEDS NOTED, CONTINUE POC
--- NOTE | 2018-11-28 23:00 | NUR ---
RE-ASSESSMENT COMPLETE PER NURSING FLOWSHEET, PATIENT REPOSITIONED, ORAL CARE PROVIDED. CONTINUE POC
[2018-11-29] VITALS (26 sets, daily range): BP systolic 137–190; BP diastolic 68–99
--- NOTE | 2018-11-29 01:00 | NUR ---
PATIENT REPOSITION, HARO CARE PROVIDED, ORAL CARE PROVIDED
--- NOTE | 2018-11-29 03:00 | NUR ---
RE-ASSESSMENT COMPLETE PER NURSING FLOWSHEET, ORAL CARE PROVIDED, PATIENT REPOSITIONED
[2018-11-29 03:52] LABS: BASOPHILS 0.2 % (0-2); EOSINOPHILS 0.8 % (0-7); HEMATOCRIT 36.9 % (42.0-54.0); HEMOGLOBIN 11.5 g/dL (13.5-17.5); IMMATURE GRANULOCYTES 0.2 % (0-5); LYMPHOCYTES 12.9 % (15-50); MCHC 31.2 g/dL (31.0-37.0); MCV 93.2 fL (80.0-100.0); MEAN PLATELET VOLUME 11.1 fL (7.4-10.4); MONOCYTES 16.1 % (2-11); NEUTROPHILS 69.8 % (40-80); PLATELET COUNT 81 10x3/uL (130-400); RBC 3.96 10x6/uL (4.20-6.10); RDW 16.4 % (11.5-14.5); WBC 5.9 10x3/uL (4.8-10.8)
[2018-11-29 04:15] LABS: ALBUMIN 2.2 g/dL (3.4-5.0); ALKALINE PHOSPHATASE 108 U/L (46-116); ALT (SGPT) 24 U/L (10-68); BILIRUBIN - TOTAL 0.48 mg/dL (0.2-1.3); CALCIUM 7.3 mg/dL (8.5-10.1); CARBON DIOXIDE 26.1 mmol/L (21.0-32.0); CHLORIDE - SERUM 112 mmol/L (98-107); GLUCOSE 124 mg/dL (74-106); MAGNESIUM - SERUM 1.5 mg/dL (1.8-2.4); POTASSIUM - SERUM 3.5 mmol/L (3.5-5.1); PROTEIN - SERUM 5.4 g/dL (6.4-8.2); SODIUM 146 mmol/L (136-145)
[2018-11-29 04:18] LABS: CALC OSMOLALITY 294 mosm/kg (275-300); CREATININE - SERUM 0.7 mg/dL (0.6-1.3); PHOSPHOROUS 1.9 mg/dL (2.5-4.9); UREA NITROGEN 20 mg/dL (7-18); eGFR NON AFRICAN AMERICAN > 90 mL/min (90-120)
--- NOTE | 2018-11-29 05:00 | NUR ---
PATIENT REPOSITIONED, TUBE FEEDING RATE INCREASED TO 30 CC/HR FROM 20, PER DR. GAO NURSING INSTRUCTION
--- NOTE | 2018-11-29 06:51 | NUR ---
Nutrition follow-up Pt intubated, sedated Pulmocare started @ 20 ml/hr via OGT Labs reviewed Wt: 236# Recommend increasing TF to goal rate of 50 ml/hr RDN following.
--- NOTE | 2018-11-29 07:00 | NUR ---
SHIFT ASSESSMENT COMPLETED, PT CARE ASSUMED. MONITORS ON AND WORKING, VITALS STABLE. HARO STAT LOCKED IN PLACE, NO SIGNS/SYMPTOMS OF PAIN OR DISCOMFORT NOTED AT THIS TIME, WILL CONTINUE TO OBSERVE.
--- NOTE | 2018-11-29 09:00 | NUR ---
PT TURNED AND REPOSITIONED, NO SIGNS/SYMPTOMS OF PAIN OR DISCOMFORT NOTED AT THIS TIME. WILL CONTINUE TO OBSERVE.
--- NOTE | 2018-11-29 11:00 | NUR ---
PT TURNED AND REPOSITIONED FOR COMFORT. NO SIGNS/SYMPTOMS OF PAIN OR DISCOMFORT NOTED. NO OTHER CHANGES, SEE FLOW SHEET FOR FURHTER DETAILS.
--- NOTE | 2018-11-29 18:15 | MORECARE ---
CASE MANAGEMENT DISCHARGE SUMMARY PATIENT: CAROL LEY UNIT: [id number] ADM DATE: 11/25/18 AGE: 73 : 46 SEX: M ROOM/BED: D.2304 AUTHOR: NELLIE RASHID PHYSICIAN: REFERRING PHYSICIAN: ANTOINETTE CASTANON MD DATE OF SERVICE: 11/29/18 Discharge Plan Patient Name: CAROL LEY [facility] [facility] 1945 Planned Disposition: Acute Care Hospital Anticipated Discharge Date: Discharge Date: Expected LOS: Initial Reviewer: [email or web address] Initial Review Date: 11/29/2018 Generated: 11/29/18 7:15 pm DCP- Discharge Planning Updated by [email or web address]: Ania Hollis on 11/26/18 9:[address] CM attempted to do intake assessment for discharge planning. Patient is currently on ventilator and sedated. No family available at this time. CM will continue to follow and assist as needed with discharge planning / needs Last DP export: 11/26/18 9:57 a Patient Name: CAROL LEY Page [phone] at 1815 All edits/amendments must be made on the electronic document DICTATION DATE: 11/29/181813 STATION MECHANIC HELPER: MARILUZ 11/29/181813 RPT#: [id number] DC DATE: STATUS: ADM IN [facility] [address] [place] [address] END OF REPORT
--- NOTE | 2018-11-29 18:25 | MORECARE ---
CASE MANAGEMENT DISCHARGE SUMMARY PATIENT: CAROL LEY UNIT: [id number] ADM DATE: 11/25/18 AGE: 73 : 46 SEX: M ROOM/BED: D.2304 AUTHOR: RACHID,DOC PHYSICIAN: REFERRING PHYSICIAN: ANTOINETTE CASTANON MD DATE OF SERVICE: 11/29/18 Discharge Plan Patient Name: CAROL LEY Facility: [facility]:[place] : 1945 Planned Disposition: Acute Care Hospital Anticipated Discharge Date: Discharge Date: Expected LOS: Initial Reviewer: [email or web address] Initial Review Date: 11/29/2018 Generated: 11/29/18 7:25 pm Comments DCP- Discharge Planning Updated by [email or web address]: Ania Hollis on 11/29/18 5:[address] Patient Name: CAROL LEY Admission Status: ER Accout number: [id number] Admission Date: 11-25-2018 : 1945 Admission Diagnosis: Attending: ANTOINETTE CASTANON Current LOS: 4 Anticipated DC Date: Planned Disposition: Acute [facility] Primary Insurance: MEDICARE A & B Discharge Planning Comments: CM received notice that patient needing to transfer to higher level of care for neuro evaluation. Information sent to transfer center and [facility] has accepted patient just awaiting bed availability. CM will continue to follow and assist with discharge planning / needs. Machine Stamper: Ania Hollis DCP- Discharge Planning Updated by [email or web address]: Ania Hollis on 11/26/18 9:[address] CM attempted to do intake assessment for discharge planning. Patient is currently on ventilator and sedated. No family available at this time. CM will continue to follow and assist as needed with discharge planning / needs DCPIA - Discharge Planning Initial Assessment Updated by [id number]: Ania Hollis on 11/29/18 6:21 pm * Is the patient Alert and Oriented? No * PCP Mathew * Pharmacy [place] * Preadmission Environment Home with Family * ADLs Independent * List name and contact numbers for known caregivers / representatives who currently or will assist patient after discharge: Nathaly Ley - daughter - [phone] * Verbal permission to speak to the caregivers and representatives has been obtained from the patient. N/A * Additional services required to return to the preadmission environment? No * Can the patient safely return to the preadmission environment? Yes * Has this patient been hospitalized within the prior 30 days at any hospital? No Last DP export: 11/29/18 5:15 p Patient Name: CAROL LEY Page [phone] at 1825 All edits/amendments must be made on the electronic document DICTATION DATE: 11/29/181823 LAYBOY TENDER: MARILUZ 11/29/181823 RPT#: [id number] DC DATE: STATUS: ADM IN [facility] [address] [place] [address] END OF REPORT
--- NOTE | 2018-11-29 19:30 | NUR ---
REPORT RECEIVED CARE ASSUMED INITIAL SHIFT ASSESSMENT COMPLETED SEE FLOWSHEET. PT NOTED ON MECHANICAL VENTILATION PER ETT. SETTINGS PER FLOWSHEET. OGT PLACEMENT VERIFED PER AUSCULTATION AND RESIDUAL CHECKED. RESIDUAL 40CC REPLACED AND FLUSHED. PT NOTED TO HAVE MUCH GASTRIC AIR, RELEASED PER OGT FOR PT COMFORT. PT NOTED TO SPLAY LEGS IN RIGID OUTWARD MOTION AND PULL ARMS INWARD AND UPWARD WHEN STIMULATED. PT DOES OPEN EYES HOWEVER DOES NOT TRACK AT ALL. EYES NOTED TO TURN UPWARD AND SLIGHTLY TO THE RIGHT WHEN OPENED. NO NYSTAGMUS NOTED. IV TUBING NOTED TO BE DUE TO BE CHANGED WILL CHANGE WITH IVF CHANGES. ALL IVF ARE APPROPRIATELY LABELED. PT IS TOTAL CARE FOR ALL ADLS AND IS UNABLE TO MAKE NEEDS KNOWN. PT IS IN DIRECT VISION OF NURSES STATION AND ALL NEEDS MET. PT TURNED AND REPOSITIONED Q2H WITH PILLOWS USED TO RELIEVE PRESSURE, PROVIDE SUPPORT, ELEVATE ARMS AND FLOAT HEELS. PT IS DIFFICULT TO TURN AND REPOSITION DUE TO INSTANT REGIDITY WHEN ANY MOVEMENT DONE. WRIST RESTRAINTS ON TO PREVENT SELF EXTUBATION. ALL ALARMS SET, VERIFIED AND ARE AUDIBLE AT NURSES STATION. BED IN LOW POSITION
--- NOTE | 2018-11-29 20:37 | NUR ---
SPOKE WITH DR. CHAWLA TO CLARIFY CARDIZEM AND HYDRALAZINE ORDER. NEW ORDERS RECEIVED, REPEATED AND VERIFED
--- NOTE | 2018-11-29 23:00 | NUR ---
SHIFT REASSESSMENT COMPLETED SEE FLOWSHEET. NO NEUROLOGICAL CHANGE AND PT CONTINUES TO HAVE FLAILING OF LOWER EXTREMETIES AND CONTRACTURE OF UPPER EXTREMETIES WHEN STIMULATED. NO VISITORS WERE HERE FOR EVENING VISITING. AWAITING ROOM ASSIGNMENT AT [facility].
[2018-11-30] VITALS (24 sets, daily range): BP systolic 134–209; BP diastolic 59–129
--- NOTE | 2018-11-30 01:16 | NUR ---
PT AGGITATED FLAILING AND STIFFENING FLEGS IN DISTRESS. INCREASE OF FENTANYL HAS NOT HELPED DIPROVAN BEGAN INDICATED ON JAN. POSITIVE RESPONSE NOTED. PT BECAME MUCH MORE RELAXED AND RESTED QUIETLY
--- NOTE | 2018-11-30 02:00 | NUR ---
PT AGAIN AGGITATED, SHAKING HEAD SIDE TO SIDE AND MOVING EXTREMETIES IN SPORATIC STIFF MOVEMENTS DIPROVAN ADJUSTED PER FLOWSHEET. NO OTHER SIGNIFICANT CHANGES
--- NOTE | 2018-11-30 03:30 | NUR ---
RADIOLOGY AT BEDSIDE FOR AM CXR. PT TOLERATED WELL. SHIFT REASSESSMENT WAS COMPLETED AND PT REMAINS WITH NO CHANGE. SEDATION WAS DECREASED FOR VACATION AND PT IMMEDIATELY BECAME AGGITATED, RESTLESS AND AT RISK FOR SELF EXTUBATION DUE TO EXCESSIVE MOVEMENT OF HEAD IN AN AGGITATED MANNER. PT RETURNED TO SEDATION AND WILL CONTINUE TO MONITOR.
[2018-11-30 05:24] LABS: ALBUMIN 2.1 g/dL (3.4-5.0); ALKALINE PHOSPHATASE 111 U/L (46-116); ALT (SGPT) 22 U/L (10-68); BILIRUBIN - TOTAL 0.38 mg/dL (0.2-1.3); CALC OSMOLALITY 295 mosm/kg (275-300); CALCIUM 7.8 mg/dL (8.5-10.1); CARBON DIOXIDE 26.1 mmol/L (21.0-32.0); CHLORIDE - SERUM 113 mmol/L (98-107); CREATININE - SERUM 0.7 mg/dL (0.6-1.3); GLUCOSE 92 mg/dL (74-106); POTASSIUM - SERUM 3.8 mmol/L (3.5-5.1); SODIUM 148 mmol/L (136-145); UREA NITROGEN 19 mg/dL (7-18); eGFR NON AFRICAN AMERICAN > 90 mL/min (90-120)
[2018-11-30 06:07] LABS: BASOPHILS 0.3 % (0-2); EOSINOPHILS 3.1 % (0-7); HEMATOCRIT 35.6 % (42.0-54.0); HEMOGLOBIN 11.1 g/dL (13.5-17.5); IMMATURE GRANULOCYTES 0.3 % (0-5); LYMPHOCYTES 21.2 % (15-50); MCH 29.1 pg (26.0-34.0); MCHC 31.2 g/dL (31.0-37.0); MCV 93.2 fL (80.0-100.0); MEAN PLATELET VOLUME 11.4 fL (7.4-10.4); MONOCYTES 15.3 % (2-11); NEUTROPHILS 59.8 % (40-80); PLATELET COUNT 72 10x3/uL (130-400); RBC 3.82 10x6/uL (4.20-6.10); RDW 16.5 % (11.5-14.5)
[2018-11-30 06:09] LABS: MAGNESIUM - SERUM 1.7 mg/dL (1.8-2.4)
[2018-11-30 06:15] LABS: PHOSPHOROUS 2.7 mg/dL (2.5-4.9)
[2018-11-30 06:25] LABS: WBC 3.9 10x3/uL (4.8-10.8)
--- NOTE | 2018-11-30 07:00 | NUR ---
SHIFT ASSESSMENT COMPLETED, PT CARE ASSUMED. MONITORS ON AND WORKING. VITALS STABLE. NO SIGNS/SYMPTOMS OF PAIN OR DISCOMFORT NOTED AT THIS TIME. WILL CONTINUE TO OBSERVE.
--- NOTE | 2018-11-30 07:01 | NUR ---
CALLED SECURITY [employer]ORD VERIFIED UPDATE GIVEN QUESTIONS ANSWERED
--- NOTE | 2018-11-30 09:00 | NUR ---
PT TURNED AND REPOSITIONED. MONITORS ON AND WORKING. VITALS STABLE, SEDATED ON VENT, NO OTHER SIGNS/SYMPTOMS OF PAIN OR DISTRESS NOTED AT THIS TIME. WILL CONTINUE TO OBSERVE.
--- NOTE | 2018-11-30 11:00 | NUR ---
NO CHANGES, MONITORS ON AND WORKING. VITALS STABLE. SEE FLOW SHEET FOR FURTHER DETAILS, WILL CONTINUE TO OBSERVE.
--- NOTE | 2018-11-30 13:00 | NUR ---
monitors on and working, vitals stable, no signs/symptoms of pain or discomfort noted at this time. will continue to observe.
--- NOTE | 2018-11-30 15:00 | NUR ---
PT TURNED AND REPOSITIONED, FAMILY AT BEDSIDE, UPDATE PROVIDED, MONITORS ON AND WORKING, VITALS STABLE, SEE FLOW SHEET FOR FURTHER DETAILS. WILL CONTINUE TO OBSERVE.
--- NOTE | 2018-11-30 17:00 | NUR ---
PT TURNED AND REPOSITIONED. MONITORS ON AND WORKING. VITALS STABLE, WILL CONTINUE TO OBSERVE.
--- NOTE | 2018-11-30 19:30 | NUR ---
REPORT RECEIVED CARE ASSUMED INITIAL SHIFT ASSESSMENT COMPLETED SEE FLOWSHEET. PT CONTINUES TO BE SUPPORTED PER MECHANICAL VENTILATION PER ETT TOLERATING WELL. NOTE RESP AT 15 AND "RIDING THE VENT" WITH NO SIGNS OF AGGITATION BUT B/P IS ELEVATED OUTSIDE PARIMETERS. PRN MEDS GIVEN DOCUMENTED ON JAN FOR ELEVATED B/P. PT REMAINS TOTAL CARE AND IS ADEQUATEDLY SEDATED AT THIS TIME WITH DIPROVAN. PT ALSO RECEIVING FENTANLY AND DOES HAVE LONG HISTORY OF CHRONIC PAIN. MONITORING PAIN MANAGEMENT CLOSELY. IVF AND IV LINES ARE EACH APPROPRIATELY LABELED AND ARE CURRENT NO DUE TO BE CHANGED. DIPROVAN DUE TO BE CHANGED WITH NEXT BOTTLE AND WILL BE DONE SO DOCUMENTED ON JAN. PT BEING MONITORED PER STANDARD ICU PROTOCOL WITH ALL ALARMS SET, VERIFIED AND AUDIBLE AT NURSES STATION. BED IN LOW POSTION PT VISIBLE AT NURSES STATION. PT DOES OPEN EYES BUT DOES NOT TRACK OR EVEN BLINK IN RESPONSE TO MOTION DIRECTLY IN FRONT OF EYES. LESS SPASTIC MOVEMENTS THAN OBSERVED LAST NIGHT PT IS ON INCREASED DOSES OF SEDATION.
--- NOTE | 2018-11-30 21:00 | NUR ---
NO VISITORS AT THIS TIME. VSS NO SIGNIFICANT CHANGES NOTED
--- NOTE | 2018-11-30 23:00 | NUR ---
SHIFT REASSESSMENT COMPLETED SEE FLOWSHEET. NO SIGNIFICANT CHANGES
[2018-12-01] VITALS (24 sets, daily range): BP systolic 108–190; BP diastolic 53–94
--- NOTE | 2018-12-01 01:00 | NUR ---
PT RESTING WELL TUBE FEEDING BAG CHANGED. RESIDUAL 10, INCREASED RATE TO GOAL OF 40
--- NOTE | 2018-12-01 03:00 | NUR ---
SHIFT REASSESSMENT COMPLETED SEE FLOWSHEET
--- NOTE | 2018-12-01 04:00 | NUR ---
COMPLETE BED BATH GIVEN WITH ALL LINENS CHANGED. PT TOLERATED WELL.
--- NOTE | 2018-12-01 05:28 | NUR ---
CALL RECEIVED FROM TRANSFER CENTER SPOKE WITH LEV RN WITH [facility] ACCESS INFORMATION GIVEN AND QUESTIONS ANSWERED. NOTIFIED NO BEDS AVAILABLE AT THIS TIME BUT THEY WOULD BE WORKING ON OBTAINING AN ACCEPTING PHYSICIAN AND WOULD CALL BACK DURING THE DAYTIME FOR MORE INFORMATION. THEIR CALL BACK NUMBER IS [phone] AND LUCINDA WILL BE THE DAY ACCESS NURSE
--- NOTE | 2018-12-01 05:32 | NUR ---
FACE SHEET FAXED TO [facility] PER REQUEST. FAX # [phone]
--- NOTE | 2018-12-01 05:36 | NUR ---
CALL RECEIVED AGAIN FROM TRANSFER CENTER FROM [facility] WHO STATES [facility] ARE ALL IN THE WORKS FOR TRANSFERING PT, WILL NOTIFIY IF BED BECOMES AVAILABLE
--- NOTE | 2018-12-01 10:11 | NUR ---
Nutrition follow-up: Intubated, sedated with propofol @ 19.6 ml/hr Pulmocare @ 40 ml/hr Labs reviewed Wt: 240# Recommend increasing TF to goal rate of 50 ml/hr to better meet pts estimated nutritional needs. RDN following.
[2018-12-01 13:00] LABS: BASOPHILS 0.3 % (0-2); EOSINOPHILS 3.8 % (0-7); HEMATOCRIT 34.7 % (42.0-54.0); IMMATURE GRANULOCYTES 0.3 % (0-5); LYMPHOCYTES 20.4 % (15-50); MCH 29.4 pg (26.0-34.0); MCHC 31.7 g/dL (31.0-37.0); MCV 92.8 fL (80.0-100.0); MEAN PLATELET VOLUME 11.9 fL (7.4-10.4); MONOCYTES 12.9 % (2-11); NEUTROPHILS 62.3 % (40-80); RBC 3.74 10x6/uL (4.20-6.10); RDW 16.3 % (11.5-14.5); WBC 3.7 10x3/uL (4.8-10.8)
[2018-12-01 13:06] LABS: PLATELET COUNT 87 10x3/uL (130-400)
[2018-12-01 13:18] LABS: ALKALINE PHOSPHATASE 153 U/L (46-116); ALT (SGPT) 26 U/L (10-68); BILIRUBIN - TOTAL 0.32 mg/dL (0.2-1.3); CALC OSMOLALITY 289 mosm/kg (275-300); CALCIUM 7.8 mg/dL (8.5-10.1); CARBON DIOXIDE 25.6 mmol/L (21.0-32.0); CHLORIDE - SERUM 110 mmol/L (98-107); CREATININE - SERUM 0.8 mg/dL (0.6-1.3); GLUCOSE 103 mg/dL (74-106); POTASSIUM - SERUM 3.3 mmol/L (3.5-5.1); PROTEIN - SERUM 5.7 g/dL (6.4-8.2); SODIUM 145 mmol/L (136-145); UREA NITROGEN 16 mg/dL (7-18); eGFR NON AFRICAN AMERICAN > 90 mL/min (90-120)
[2018-12-01 13:50] LABS: PLATELET ESTIMATE DECREASED; PLATELET MORPHOLOGY NORMAL PLT MORPH
--- NOTE | 2018-12-01 19:30 | NUR ---
REPORT RECEIVED CARE ASSUMED INITIAL SHIFT ASSESSMENT COMPLETED SEE FLOWSHEET. PT REMAINS ON MECHANICAL VENTILATION PER ETT. TOLERATING WITH CURRENT SEDATION OF DIPROVAN AND FENTANYL. PT DOES RESPOND TO STIUMULI BUT WITHOUT PURPOSEFUL MOVEMENT. NOTE ETT WITH SOME BLOODY SECRETIONS WITH INLINE SUCTIONING. RT STATES PT HAD BEEN AGGITATED EARLIER WHEN ON SEDATION VACATION AND CAUSED STRESS ON ETT. WILL MONITOR CLOSELY BUT ONLY SMALL AMOUNT OF BRIGHT RED BLOOD NOTED. PT REMAINS TOTAL CARE FOR ALL ADLS' AND IS TURNED AND REPOSITIONED Q2H WITH PILLOWS AND WEDGES USED TO PROVIDE SUPPORT, RELIEVE PRESSURE, ELEVATE ARMS AND FLOAT HEELS. IVF AND IV LINES ARE CURRENT AND NOT DUE TO BE CHANGED. WILL CHANGE DIPROVAN WITH NEXT BOTTLE AND DOCUMENT ON JAN. BED IN LOW POSITION AND PT IS VISIBLE FROM NURSES STATION.
--- NOTE | 2018-12-01 20:49 | NUR ---
CALL RECEIVED FROM JALYN AT TRANSFER CENTER. WAITING ON BED AVAILABILITY AT [facility] ([facility]), [facility] AND [facility]. NO BEDS AVAILABLE AT THIS TIME
--- NOTE | 2018-12-01 22:56 | NUR ---
SUZIE FROM [facility] CALL CENTER CALLED FOR UPDATE CONTINUE TO HAVE NO BEDS AVAIABLE AND WILL CALL WHEN ONE BECOMES AVAILABLE
--- NOTE | 2018-12-01 23:00 | NUR ---
SHIFT REASSESMENT COMPLETED SEE FLOWSHEET NO SIGNIFICANT CHANGE. CONT TO MONITOR. VSS
[2018-12-02] VITALS (13 sets, daily range): BP systolic 118–239; BP diastolic 54–109
--- NOTE | 2018-12-02 01:00 | NUR ---
PT RESTING NO ACUTE CHANGES
--- NOTE | 2018-12-02 03:00 | NUR ---
PT RESTLESS AGGITATED. INCREASED DIPROVAN TO 50MCG AND DUE TO INCREASED CALDERON SCORE INCREASED FENTANYL TO 400MCG. WILL MONITOR
--- NOTE | 2018-12-02 05:00 | NUR ---
COMPLETE BATH DONE WITH ALL LINENS CHANGED. PT TOLERATED WELL INCONTINENT OF SMALL LIQUID STOOL ELOISA CARE ADN F/C CARE DONE.
--- NOTE | 2018-12-02 05:15 | NUR ---
CALL RECEIVED FROM [facility] CALL CENTER TO STATE NO BEDS ARE AVAILABLE AND PT REMAINS ON THE LIST
[2018-12-02 08:04] LABS: BASOPHILS 0.2 % (0-2); EOSINOPHILS 3.1 % (0-7); IMMATURE GRANULOCYTES 0.2 % (0-5); LYMPHOCYTES 18.5 % (15-50); MCHC 31.4 g/dL (31.0-37.0); MCV 92.3 fL (80.0-100.0); MEAN PLATELET VOLUME 11.9 fL (7.4-10.4); MONOCYTES 9.7 % (2-11); NEUTROPHILS 68.3 % (40-80); PLATELET COUNT 94 10x3/uL (130-400); RBC 3.79 10x6/uL (4.20-6.10); RDW 16.1 % (11.5-14.5); WBC 4.5 10x3/uL (4.8-10.8)
[2018-12-02 08:14] LABS: ALBUMIN 2.1 g/dL (3.4-5.0); ALKALINE PHOSPHATASE 169 U/L (46-116); ALT (SGPT) 28 U/L (10-68); BILIRUBIN - TOTAL 0.29 mg/dL (0.2-1.3); CALC OSMOLALITY 282 mosm/kg (275-300); CALCIUM 7.9 mg/dL (8.5-10.1); CARBON DIOXIDE 24.3 mmol/L (21.0-32.0); CHLORIDE - SERUM 107 mmol/L (98-107); CREATININE - SERUM 0.8 mg/dL (0.6-1.3); GLUCOSE 121 mg/dL (74-106); POTASSIUM - SERUM 3.4 mmol/L (3.5-5.1); PROTEIN - SERUM 5.8 g/dL (6.4-8.2); SODIUM 141 mmol/L (136-145); UREA NITROGEN 15 mg/dL (7-18); eGFR NON AFRICAN AMERICAN > 90 mL/min (90-120)
--- NOTE | 2018-12-02 09:00 | NUR ---
NO CHANGE IN ASSESS---SEE GRAPHIC SPOUSE AT BS
--- NOTE | 2018-12-02 13:10 | NUR ---
TRANSFER TO [facility] IN [place] ON [address]---NO DISTRESS NOTED ----REPORT CALL TO KRUPA HARGROVE AT [facility]---SEE DISCHARGE INST & PCS SHEET
--- NOTE | 2018-12-02 20:37 | MORECARE ---
CASE MANAGEMENT DISCHARGE SUMMARY PATIENT: CAROL LEY UNIT: [id number] ADM DATE: 11/25/18 AGE: 73 : 46 SEX: M ROOM/BED: D.2304 AUTHOR: RACHID,DOC PHYSICIAN: REFERRING PHYSICIAN: ANTOINETTE CASTANON MD DATE OF SERVICE: 12/02/18 Discharge Plan Patient Name: CAROL LEY Facility: [facility]:[place] : 1945 Planned Disposition: Acute Care Hospital Anticipated Discharge Date: Discharge Date: 12/02/2018 Expected LOS: Initial Reviewer: [email or web address] Initial Review Date: 11/29/2018 Generated: 12/02/18 9:37 pm Comments DCP- Discharge Planning Updated by [email or web address]: Ania Hollis on 12/02/18 7:[address] CM received notice that patient was accepted to [facility] in and has bed available. CM contacted transfer center to set up transportation to facility. Records and disk sent with patient upon transfer. CM will continue to follow and assist as needed with discharge planning / needs. DCP- Discharge Planning Updated by [email or web address]: Ania Hollis on 11/29/18 5:[address] Patient Name: CAROL LEY Admission Status: ER Accout number: [id number] Admission Date: 11-25-2018 : 1945 Admission Diagnosis: Attending: ANTOINETTE CASTANON Current LOS: 4 Anticipated DC Date: Planned Disposition: Acute [facility] Primary Insurance: MEDICARE A & B Discharge Planning Comments: CM received notice that patient needing to transfer to higher level of care for neuro evaluation. Information sent to transfer center and [facility] has accepted patient just awaiting bed availability. CM will continue to follow and assist with discharge planning / needs. Respiratory Therapy Instructor: Ania Hollis DCP- Discharge Planning Updated by [email or web address]: Ania Hollis on 11/26/18 9:[address] CM attempted to do intake assessment for discharge planning. Patient is currently on ventilator and sedated. No family available at this time. CM will continue to follow and assist as needed with discharge planning / needs DCPIA - Discharge Planning Initial Assessment Updated by [email or web address]: Ania Hollis on 11/29/18 6:21 pm * Is the patient Alert and Oriented? No * PCP Mathew * Pharmacy [facility] * Preadmission Environment Home with Family * ADLs Independent * List name and contact numbers for known caregivers / representatives who currently or will assist patient after discharge: Nathaly Ley - daughter - [phone] * Verbal permission to speak to the caregivers and representatives has been obtained from the patient. N/A * Additional services required to return to the preadmission environment? No * Can the patient safely return to the preadmission environment? Yes * Has this patient been hospitalized within the prior 30 days at any hospital? No Last DP export: 11/29/18 5:25 p Patient Name: CAROL LEY Page [id number] at 203 All edits/amendments must be made on the electronic document DICTATION DATE: 12/02/182035 INFANTRYMAN: MARILUZ 12/02/182035 RPT#: [id number] DC DATE:12/02/18 STATUS: DIS IN [facility] [address] [place] [address] END OF REPORT
--- NOTE | 2018-12-02 22:13 | MORECARE ---
CASE MANAGEMENT DISCHARGE SUMMARY PATIENT: CAROL LEY UNIT: [id number] ADM DATE: 11/25/18 AGE: 73 : 46 SEX: M ROOM/BED: D.2304 AUTHOR: RACHID,DOC PHYSICIAN: REFERRING PHYSICIAN: ANTOINETTE CASTANON MD DATE OF SERVICE: 12/02/18 Discharge Plan Patient Name: CAROL LEY Facility: [facility]:[place] : 1945 Planned Disposition: Acute Care Hospital Anticipated Discharge Date: Discharge Date: 12/02/2018 Expected LOS: Initial Reviewer: [email or web address] Initial Review Date: 11/29/2018 Generated: 12/02/18 11:13 pm Comments DCP- Discharge Planning Updated by [email or web address]: Ania Hollis on 12/02/18 7:[address] CM received notice that patient was accepted to [facility] in and has bed available. CM contacted transfer center to set up transportation to facility. Records and disk sent with patient upon transfer. CM will continue to follow and assist as needed with discharge planning / needs. DCP- Discharge Planning Updated by [email or web address]: Ania Hollis on 11/29/18 5:[address] Patient Name: CAROL LEY Admission Status: ER Accout number: [id number] Admission Date: 11-25-2018 : 1945 Admission Diagnosis: Attending: ANTOINETTE CASTANON Current LOS: 4 Anticipated DC Date: Planned Disposition: Acute [facility] Primary Insurance: MEDICARE A & B Discharge Planning Comments: CM received notice that patient needing to transfer to higher level of care for neuro evaluation. Information sent to transfer center and [facility] has accepted patient just awaiting bed availability. CM will continue to follow and assist with discharge planning / needs. Money Market Dealer: Ania Hollis DCP- Discharge Planning Updated by [email or web address]: Ania Hollis on 11/26/18 9:[address] CM attempted to do intake assessment for discharge planning. Patient is currently on ventilator and sedated. No family available at this time. CM will continue to follow and assist as needed with discharge planning / needs DCPIA - Discharge Planning Initial Assessment Updated by [email or web address]: Ania Hollis on 11/29/18 6:21 pm * Is the patient Alert and Oriented? No * PCP Mathew * Pharmacy [facility] * Preadmission Environment Home with Family * ADLs Independent * List name and contact numbers for known caregivers / representatives who currently or will assist patient after discharge: Nathaly Ley - daughter - [phone] * Verbal permission to speak to the caregivers and representatives has been obtained from the patient. N/A * Additional services required to return to the preadmission environment? No * Can the patient safely return to the preadmission environment? Yes * Has this patient been hospitalized within the prior 30 days at any hospital? No Last DP export: 12/02/18 7:37 p Patient Name: CAROL LEY Page [id number] at 5863 All edits/amendments must be made on the electronic document DICTATION DATE: 12/02/182212 MRI SPECIAL PROCEDURES TECHNOLOGIST: MARILUZ 12/02/182212 RPT#: [id number] DC DATE:12/02/18 STATUS: DIS IN [facility] [address] [place] [address] END OF REPORT
--- NOTE | 2018-12-03 21:29 | DS ---
PATIENT:CAROL LEY :[birth year] MEDICAL RECORD: [id number] DISCHARGE SUMMARY ADMISSION DATE: 11/25/18 DISCHARGE DATE: 12/02/18 DATE OF ADMISSION: 11/25/2018 DATE OF DISCHARGE: 12/02/2017 ADMITTING DIAGNOSES: 1. Acute encephalopathy. 2. Acute hypoxic respiratory failure, questionable hypoxic brain injury. 3. Seizure. 4. Acute kidney injury with hyperkalemia. 5. Hypertension. 6. Hyperlipidemia. 7. Coronary artery disease. 8. Chronic back pain, on chronic pain management per pain specialist. 9. Chronic arachnoiditis. 10. BPH. 11. History of cirrhosis. 12. History of depression. 13. History of anxiety. 14. History of alcohol abuse. 15. Elevated troponin. DISCHARGE DIAGNOSES: 1. Acute encephalopathy. 2. Acute hypoxic respiratory failure, questionable hypoxic brain injury. 3. Seizure. 4. Acute kidney injury with hyperkalemia. 5. Hypertension. 6. Hyperlipidemia. 7. Coronary artery disease. 8. Chronic back pain, on chronic pain management per pain specialist. 9. Chronic arachnoiditis. 10. BPH. 11. History of cirrhosis. 12. History of depression. 13. History of anxiety. 14. History of alcohol abuse. 15. Elevated troponin. CONSULTING PHYSICIANS: 1. Ben Adame MD, with pulmonary 2. Efren Eubanks MD with pulmonary 3. Renal with Ron Andrew MD BRIEF HISTORY AND HOSPITAL COURSE: This is a 73-year-old white male that initially presents to my office complaining of confusion. His thought he might be intoxicated. He denies drinking alcohol. He was sent from my office to the Emergency Room, where he was found to be in renal failure with a creatinine of 5.6. His potassium at that time was 6.9. While in the Emergency Department, he went for a CT of head. While in the CT unit, he underwent a respiratory event and coded. He was brought back. Post-code, he was noted to have some possible seizure-like activity. He was intubated during the code and DISCHARGE SUMMARY REPORT [id number] CAROL LEY subsequently transferred to the ICU, where he was seen in consultation by pulmonary and renal. His acute renal injury resolved quickly with normalization of his renal function. His initial ABGs post-code were 7.24, pCO2 of 37, pO2 of 529. Initial CT of the head revealed no acute findings. A CT of abdomen and pelvis was also performed which revealed some pneumonia. Followup MRI of the brain was performed on November 29 which revealed no acute abnormalities. There were some findings suggestive of chronic sinusitis. Venous Dopplers were negative for DVT. The patient was started on antibiotic coverage. He was placed on Xifaxan. He did have some elevation of his ammonia and was given lactulose. He was placed on fentanyl drip and propofol for sedation. When propofol was discontinued, the patient developed upward gaze to the left and had some shaking-like activity of the extremities. No purposeful movement was noted nor would he follow any instructions. A question of anoxic brain injury came up. We do not have a neurologist here at [place]. From the standpoint of his pneumonia, he was stabilized. His kidney function went back to normal. After getting back the MRI, it was felt that the patient is going to require further neurological evaluation with EEG and neurology. I was able to contact [facility], which agrees to accept the patient. The patient is subsequently transferred on 12/02/2018 by ambulance. Please see MAR for meds at the time of transfer. TRANSINT:[id number] Voice Confirmation ID: [id number] DOCUMENT ID: [id number] SAMI CHAWLA DO at 2122 CC: [id number] DICTATION DATE: 12/02/18 170 GUARD RANGE: 12/02/18 175 DIS IN 12/02/18 [facility] [address] [place] [address]
--- NOTE | 2018-12-10 15:09 | EC ---
PATIENT:CAROL LEY DATE OF SERVICE: 11/25/18 SEX: M MEDICAL RECORD: [id number] DATE OF : [birth year] LOCATION:[facility] AGE OF PATIENT: 73 ADMISSION DATE: 11/25/18 REFERRING PHYSICIAN: INTERPRETING PHYSICIAN: SHARMIN ANTONIO MD ECHOCARDIOGRAM REPORT ECHO CHARGES 4 ECHO COMPLETE Date: 11/26/18 CLINICAL DIAGNOSIS: CHF ECHOCARDIOGRAPHIC MEASUREMENTS (adult normal given) AC root (d.<3.7cm) 3.9 cm LV Septum d (<1.2 cm> 1.6 cm Valve Excursion 1.8 cm LV Septum (systole) 1.8 cm Left Atria (s.<4.0cm> 4.4 cm LVPW d(<1.2cm) 1.8 cm RV (d.<2.3cm) 4.3 cm LVPW (sytole) 2.0 cm LV diastole(<5.6CM) 5.2 cm MV E-F(>70mm/sec) cm LV systole 3.7 cm LVOT Diameter 1.8 cm MV exc.(>10mm) 2.2 cm Est.ejection fraction (50-75%) % DOPPLER: LVIT cm/sec A 19.0 cm/sec E 130 cm/sec LA cm/sec RVSP 28 mmHg LVOT 110 cm/sec AOP1/2T m/s Asc. Ao 224 cm/sec RVOT 111 cm/sec RA cm/sec PA 147 cm/sec AV Gradient Peak 20.10mmHg AV Mean 9.66 mmHg AV Area 1.6 cm MV Gradient Peak 5.44 mmHg MV Mean 3.03 mmHg MV Area cm COMMENTS: Youth Corrections Officer: Aliyah GREY Facs Teacher: 1 Dr. Antonio TAPE# PACS Pericardial Effusion N DATE OF SERVICE: 11/26/2018 ECHOCARDIOGRAM FINDINGS: 1. Left ventricular chamber size is within normal limits. Left ventricular systolic function is normal. Overall ejection fraction estimated at 55%. 2. Left atrium is enlarged at 4.4 cm. Right atrium and right ventricle chamber sizes are as well mildly dilated. 3. Valvular structures: Aortic valve demonstrates mild calcific aortic ECHOCARDIOGRAM REPORT [id number] CAROL LEY stenosis, valve area calculates to 1.6 cm-squared. There is gradient of 20-mm across the valve. The remaining valvular structures have normal structure and motion. 4. Doppler interrogation elsewise reveals trace tricuspid regurgitation, no other valvular insufficiency or stenosis and pulmonary systolic pressure is estimated at 28 mmHg. 5. No evidence of pericardial effusion or left ventricular thrombus. TRANSINT:[id number] Voice Confirmation ID: [id number] DOCUMENT ID: [id number] SHARMIN ANTONIO MD at 1509 CC: [id number] DICTATION DATE: 12/10/18 1104 EXPERIMENTAL ROCKETSLED MECHANIC: 12/10/18 1222 DIS IN 12/02/18 [facility] [id number] [place] [address]
== END 2018-12-02 12:20 | disposition short-term general hospital (02) | DRG 207 ==
LOC: D.ER 17:59 → D.ICU 23:22 → D.EDHOLD 23:22 → D.ICU 23:32
PROVIDERS: Emergency Medicine; Family Medicine; Internal Medicine Pulmonary Disease; ADMIT Internal Medicine Nephrology
PROC: 5A1955Z Respiratory Ventilation, Greater than 96 Consecutive Hours (ICD-10-PCS; principal; 2018-11-26)
PROC: 0BH17EZ Insertion of Endotracheal Airway into Trachea, Via Natural or Artificial Opening (ICD-10-PCS; 2018-11-26)
PROC: 05HY33Z Insertion of Infusion Device into Upper Vein, Percutaneous Approach (ICD-10-PCS; 2018-12-01)
DX: J96.01 Acute respiratory failure with hypoxia (principal); N17.0 Acute kidney failure with tubular necrosis; I21.4 Non-ST elevation (NSTEMI) myocardial infarction; J69.0 Pneumonitis due to inhalation of food and vomit; G93.41 Metabolic encephalopathy; E87.1 Hypo-osmolality and hyponatremia; E87.2 Acidosis; I25.10 Atherosclerotic heart disease of native coronary artery without angina pectoris; E87.5 Hyperkalemia; I10 Essential (primary) hypertension; J44.9 Chronic obstructive pulmonary disease, unspecified; S06.9X0A Unspecified intracranial injury without loss of consciousness, initial encounter; I48.91 Unspecified atrial fibrillation; E83.42 Hypomagnesemia; K70.30 Alcoholic cirrhosis of liver without ascites; N40.0 Benign prostatic hyperplasia without lower urinary tract symptoms; D64.9 Anemia, unspecified; R56.9 Unspecified convulsions; Q05.9 Spina bifida, unspecified; F10.10 Alcohol abuse, uncomplicated; E83.52 Hypercalcemia; K72.90 Hepatic failure, unspecified without coma; E78.5 Hyperlipidemia, unspecified; G89.29 Other chronic pain; F41.8 Other specified anxiety disorders; D69.6 Thrombocytopenia, unspecified; E78.00 Pure hypercholesterolemia, unspecified